=== PATIENT | female | born 1990 | race Two or more races ===

== ENCOUNTER 2018-01-09 17:10 | Emergency (ER) | payer SELFPAY ==
[~2018-01-09] VITALS: Ht 167.6 cm; Wt 81.6 kg
[2018-01-09 17:27] VITALS: BP 109/73
[2018-01-09] MEDS ORDERED: ONDANSETRON ODT 4 MG TAB PO ONE (18:30)
[2018-01-09] MEDS ORDERED: ACETAMINOPHEN 500 MG TAB PO ONE (18:30)
== END 2018-01-09 19:03 | disposition home or self-care (01) ==
LOC: ER 17:10
DX: S00.83XA Contusion of other part of head, initial encounter (principal); V28.0XXA Motorcycle driver injured in noncollision transport accident in nontraffic accident, initial encounter; Y93.89 Activity, other specified; Y99.8 Other external cause status; Y92.89 Other specified places as the place of occurrence of the external cause
CPT/HCPCS: 70450; 99284; Q0162